=== PATIENT | male | born 1945 | race Caucasian/White ===

== ENCOUNTER → 2020-04-29 09:49 | Outpatient (BNVA) | payer OTHER, SELFPAY | PROVIDERS: PCP Internal Medicine; Visit Provider Urology | DX: Z87.442 Personal history of urinary calculi (principal) | CPT/HCPCS: 99214 ==

== ENCOUNTER → 2021-05-04 10:12 | Outpatient (BNVA) | payer OTHER, SELFPAY | PROVIDERS: PCP Internal Medicine; Visit Provider Urology | DX: N20.0 Calculus of kidney (principal) ==

== ENCOUNTER 2023-04-12 11:53 | Outpatient (REF) | payer OTHER, MEDICARE, SELFPAY | END 2023-04-12 11:54 | disposition home or self-care (01) | LOC: HO.MDS 11:53 | PROVIDERS: Visit Provider Psychiatry & Neurology Neurology | DX: H46.9 Unspecified optic neuritis (principal) | CPT/HCPCS: 96365; J2930 ==

== ENCOUNTER 2023-04-13 12:04 | Outpatient (REF) | payer OTHER, MEDICARE, SELFPAY | END 2023-04-13 12:05 | disposition home or self-care (01) | LOC: HO.MDS 12:04 | PROVIDERS: Visit Provider Psychiatry & Neurology Neurology | DX: H46.9 Unspecified optic neuritis (principal) | CPT/HCPCS: 96365; J2930 ==

== ENCOUNTER 2023-04-14 12:04 | Outpatient (REF) | payer OTHER, MEDICARE, SELFPAY | END 2023-04-14 12:05 | disposition home or self-care (01) | LOC: HO.MDS 12:04 | PROVIDERS: Visit Provider Psychiatry & Neurology Neurology | DX: H46.9 Unspecified optic neuritis (principal) | CPT/HCPCS: 96365; J2930 ==

== ENCOUNTER 2023-11-08 09:02 | Outpatient (AMB) | payer OTHER, MEDICARE, SELFPAY ==
--- NOTE | 2023-11-08 09:03 | MHC.OFFVIS ---
Intake Visit Reasons: 1Y US(set) Intake Note: Patient is Present for Telephone Follow Up Urology Med:Vitamin B6 Antibiotic Allergy:None Blood Thinner: Warfarin Allergies No Known Allergies Allergy (Verified 11/08/23 09:10) Medication List - Last Reconciled 11/08/23 by Adam Santos MD albuterol sulfate 90 mcg/actuation inhalation amlodipine 5 mg PO DAILY amoxicillin-pot clavulanate 875-125 mg 1 tab PO BID azelastine intranasal budesonide mg inhalation BID enoxaparin mg subcut fexofenadine 180 mg PO DAILY fluticasone propion-salmeterol 250-50 mcg/dose inhalation fluticasone propion-salmeterol 500-50 mcg/dose inhalation fluticasone propionate 50 mcg/actuation intranasal folic acid 1 mg PO DAILY ipratropium bromide intranasal ipratropium-albuterol 20-100 mcg/actuation inhalation levocetirizine 5 mg PO DAILY metoprolol succinate ER 50 mg PO DAILY montelukast 10 mg PO DAILY peg 3350-electrolytes 236-22.74-6.74 -5.86 gram 4,000 mL PO DIRECTED prednisone 5 mg PO DAILY pyridoxine (vitamin B6) 50 mg PO DAILY 90 days simvastatin 10 mg PO BEDTIME warfarin mg PO HPI Comments Details: Hakan Bowles is a very pleasant male. He is a patient of Dr. Nava. He is seen for the following urologic conditions - nephrolithiasis Telephone evaluation 15 minutes consultation Doxedelight herbie Video attempted Discussed results from ultrasound Small stones bilateral Vitamin B6 prescribed 12 month follow-up Nephrolithiasis ? They are here for further evaluation of urethrolitiasis ? - no symptoms. ? They present for evaluation of? back pain? none ? flank pain? none ? abdominal pain? none ? Urolithiasis was diagnosed [address] Harmon. ? The patient previously had kidney stones whose composition w calcium oxalate - background of ulcerative colitis which may change oxalate processing. ? Laboratory investigations include no recent labs. ? 24 Hour urine evaluation none on file. ? Prior treatment(s) include Left , PCNL 2cm stone 08/2007, ESWL 05/2009 ? , with dietary advice to increase fluids, decrease salt and watch protein intake. ? Prior imaging includes Feb 2016 a KUB x-ray , showing radiodense stone(s), on the left, 1-2 mm x 2 ? 04/02 , a KUB x-ray, showing no evidence of stones ? 04/03 , a KUB x-ray, bilateral stones 4 mm ? 04/04 renal ultrasound 7 mm lower pole left, KUB 6 mm lower pole left - 04/05? renal ultrasound? no stones noted.? Area for caliectasis upper pole right kidney - 04/06 renal ultrasound question on of 3 mm stone on left side - 05/07 renal ultrasound 7 mm right stone, 4 mm left stone ? UA today shows 5.5-6.0, low pH suggestive of higher protein load, high specific gravity suggestive of relative dehydration. ? Current therapeutic plan will be to continue with imaging surveillance PFSH Medical History Colitis History of kidney stones Phlebitis Surgical History History of surgery Review of Systems Const All systems reviewed & are unremarkable except as noted in HPI and below Reports no additional complaints Resp Reports no additional complaints GI Reports no additional complaints Reports as per HPI Musc Reports no additional complaints Physical Exam Telemedicine evaluation Appropriate responses Regular breathing rate and rhythm HEENT Head: Yes normal to inspection Ears: hearing grossly normal bilaterally Eyes General: appearance normal, both eyes and all related structures Neck Neck: Yes normal visual inspection Chest Chest palpation & inspection: normal inspection of the chest Resp Effort & Inspection: normal respiratory effort and able to speak in complete sentences Telehealth Telehealth Location of provider rendering services: practice address Location of patient: address on file Patient Identification confirmed using: Name, : Yes Telehealth method: video Patient verbally consented to treatment: Yes Patient verbally consented to billing insurance company: Yes Patient informed of any privacy concerns related to visit: Yes Minutes spent on Phone/Video with Pt.: 15 Assessment & Plan Assessment & Plan (1) Nephrolithiasis: Code(s): N20.0 - Calculus of kidney Category: Medical Plan Continue vitamin B6 50 mg Encourage fluid intake Twelve month follow-up ultrasound Orders: Orders US renal BI 12 Months N20.0 - Calculus of kidney Medications: Changed From pyridoxine (vitamin B6) 100 mg PO DAILY 90 days 90 tabs 3RF N20.0 - Calculus of kidney To pyridoxine (vitamin B6) 50 mg PO DAILY 90 days 90 tabs 3RF N20.0 - Calculus of kidney Patient Instructions: Imaging studies, laboratory and physical exam results were discussed and reviewed in detail. No major barriers to patient understanding were identified. An opportunity to ask questions regarding the treatment plan was provided. All questions were answered. The patient expressed understanding and agreement with the above treatment plan. The patient is aware they should contact our office by phone for worsening of their current condition or the appearance of new urologic symptoms. Compliance is encouraged with any medications and followup testing that is ordered. It is a privilege to participate in the urologic care of your patient. If you have any questions or concerns regarding treatment for the above conditions, or other urologic issues, please do not hesitate to contact me. The office telephone contact is [phone]. This note is constructed using voice recognition software. While every effort has been made to ensure accuracy land surveyor manager errors may have been included. Yours sincerely, Dr Adam Santos MD, [facility] - Urology Providers of Expert, Compassionate Care for the Genitourinary System Coding Level of Care Code Tele Est Pt Level 4 (95228) Diagnoses Nephrolithiasis N20.0
== END 2023-11-08 09:48 | disposition home or self-care (01) ==
LOC: HO.HUSH 09:02
PROVIDERS: PCP Internal Medicine; Visit Provider Urology
DX: N20.0 Calculus of kidney (principal)
CPT/HCPCS: 99214

== ENCOUNTER → 2023-11-08 09:02 | Outpatient (BNVA) | payer OTHER, MEDICARE, SELFPAY | PROVIDERS: PCP Internal Medicine; Visit Provider Urology ==

== ENCOUNTER 2024-12-06 10:50 | Outpatient (AMB) | payer OTHER, MEDICARE, SELFPAY ==
--- OUTSIDE RECORDS SUMMARY | 2024-12-06 10:56 | XMS_ITS | Clinical Summary ---
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 90 each 08/19/2024 Active amLODIPine (NORVASC) 10 mg tablet Take 1 tablet (10 mg total) by mouth 1 (one) time each day. 90 tablet 1 09/19/2024 Active simvastatin (ZOCOR) 20 mg tablet Take 1 tablet (20 mg total) by mouth 1 (one) time each day. 90 tablet 1 09/19/2024 Active metoprolol succinate (TOPROL-XL) 50 mg 24 hr tablet Take 2 tablets (100 mg total) by mouth 1 (one) time each day. 180 tablet 1 09/19/2024 Active folic acid (FOLVITE) 1 mg tablet TAKE 1 TABLET BY MOUTH DAILY (IC FOLVITE) 90 tablet 10/03/2024 Active hydroCHLOROthia zide 12.5 mg tablet Take 1 tablet (12.5 mg total) by mouth 1 (one) time each day. 90 each 10/24/2024 Active warfarin (COUMADIN) 5 mg tablet TAKE 1 TO 2 TABLETS (5 TO 10 MG) BY MOUTH ONCE A DAY DIRECTED BY COUMADIN CLINIC. DO NOT CHANGE DIETARY HABITS. 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 Lung nodule 10/20/2022 Asthma 02/10/2020 Chronic rhinitis 07/31/2019 Hyposmia 07/31/2019 Essential hypertension 02/27/2019 May-Thurner syndrome 09/26/2016 DVT (deep venous thrombosis) ([facility] V24, [facility]/ CC V28) 04/19/2016 Overview (09/19/2024): 2016, chronic anticoagulation Mixed hyperlipidemia 11/01/2010 Lumbago 08/03/2007 Urolithiasis 04/12/2007 Overview (06/28/2024): [place] Ulcerative colitis ([facility] V24, [facility]/HCC V28) Overview (06/28/2024): [place] [address] dr dougherty Venous (peripheral) insufficiency 09/15/2005 Encounters Date Type Department Care Team Description 11/25/2024 11:00 AM EDT Anticoagulation - Warfarin Visit [facility] Clinic [address] [phone] Deep vein thrombosis (DVT) of distal vein of left lower extremity, unspecified chronicity ([facility]/HCC V24, CMS/HCC V28) (Primary Dx); Longstanding persistent atrial fibrillation ([facility]/HCC V24, [facility]/HCC V28) 11/11/2024 11:10 AM EDT Anticoagulation - Warfarin Visit Coumadin [address] [phone] Deep vein thrombosis (DVT) of distal vein of left lower extremity, unspecified chronicity (CMS/HCC V24, CMS/HCC V28) (Primary Dx); Longstanding persistent atrial fibrillation (CMS/HCC V24, CMS/HCC V28) 11/04/2024 11:10 AM EDT Anticoagulation - Warfarin Visit Coumadin [address] [phone] Deep vein thrombosis (DVT) of distal vein of left lower extremity, unspecified chronicity (CMS/HCC V24, CMS/HCC V28) (Primary Dx); Longstanding persistent atrial fibrillation (CMS/HCC V24, CMS/HCC V28) 10/30/2024 11:20 AM EDT Anticoagulation - Warfarin Visit Coumadin [address] [phone] Deep vein thrombosis (DVT) of distal vein of left lower extremity, unspecified chronicity (CMS/HCC V24, CMS/HCC V28) (Primary Dx); Longstanding persistent atrial fibrillation (CMS/HCC V24, CMS/HCC V28) 10/28/2024 11:00 AM EDT Anticoagulation - Warfarin Visit Coumadin [address] [phone] Deep vein thrombosis (DVT) of distal vein of left lower extremity, unspecified chronicity (CMS/HCC V24, CMS/HCC V28) (Primary Dx); Longstanding persistent atrial fibrillation (CMS/HCC V24, CMS/HCC V28) 10/24/2024 9:45 AM EDT Office Visit Adult Medicine [address] [phone] Maribell Rosen MD Rib pain (Primary Dx); Essential hypertension; Longstanding persistent atrial fibrillation (CMS/HCC V24, CMS/HCC V28); Mixed hyperlipidemia; Hyposmia 10/14/2024 11:10 AM EDT Anticoagulation - Warfarin Visit Coumadin [address] [phone] Deep vein thrombosis (DVT) of distal vein of left lower extremity, unspecified chronicity (CMS/HCC V24, CMS/HCC V28) (Primary Dx); Longstanding persistent atrial fibrillation (CMS/HCC V24, CMS/HCC V28) 10/14/2024 Telephone Adult Medicine [address] [phone] Olga Longoria RN 10/11/2024 Telephone Adult Medicine [facility] - [address] [phone] Brie Willard MA Medication Problem 10/07/2024 4:30 PM EDT Anticoagulation - Warfarin Visit Coumadin [address] [phone] Deep vein thrombosis (DVT) of distal vein of left lower extremity, unspecified chronicity (CMS/HCC V24, CMS/HCC V28) (Primary Dx); Longstanding persistent atrial fibrillation (CMS/HCC V24, CMS/HCC V28) 09/30/2024 9:46 AM EDT - 09/30/2024 11:59 PM EDT Hospital Encounter Radiology Department - [address] [phone] Calculus of kidney Discharge Disposition: Home or Self Care 09/24/2024 Telephone Adult Medicine [address] [phone] Maribell Rosen MD Release of Information (Pre Op inform) 09/19/2024 10:00 AM EST Consult Adult Medicine [address] [phone] Maribell Rosen MD Preop cardiovascular exam (Primary Dx); Mild intermittent asthma without complication; Longstanding persistent atrial fibrillation (CMS/HCC V24, CMS/HCC V28); Essential hypertension; Mixed hyperlipidemia; Calculus of lower urinary tract; Optic disc edema; Hyposmia 09/16/2024 11:00 AM EST Anticoagulation - Warfarin Visit Coumadin [address] [phone] Deep vein thrombosis (DVT) of distal vein of left lower extremity, unspecified chronicity (CMS/HCC V24, CMS/HCC V28) (Primary Dx); Longstanding persistent atrial fibrillation (CMS/HCC V24, CMS/HCC V28) 09/09/2024 11:00 AM EST Anticoagulation - Warfarin Visit Coumadin [address] [phone] Deep vein thrombosis (DVT) of proximal vein of left lower extremity, unspecified chronicity ([facility] V24, [facility] V28) (Primary Dx); 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; Atrial fibrillation, unspecified type ([facility] V24, [facility] V28) 09/09/2024 Telephone Adult [address] [phone] Maribell Rosen MD Hypertension; Walk-in from Last 3 Months Immunizations Name Administration Dates Next Due Influenza Quadravalent, 0.5m l (Fluzone High-dose) 65yo and older 04/18/2023,04/27/2022,04/22/2021 Influenza trivalent, 0.5mL ( Fluzone High-dose) 65yo and older 03/25/2024,04/20/2020,04/16/2019,04/23,04/28/2017 Influenza trivalent, with pr eservative (Fluzone; Afluria) 6mo and older 05/16/2019,04/12/2016,06/23/2015,04/04,03/26/2012,04/20/2011,05/05/2010 ,04/04/2009,06/05/2008,06/16/2007 Moderna SARS-CoV-2 COVID-19, mRNA, LNP-S, preservative free 10/09/2020,09/18/2020 [place] Covid-19 Bivalent, Or iginal + Ba.1 (Non-US Trademark [employer] Bivalent) 04/27/2022 Pneumococcal conjugate 13 va lent (Prevnar 13, PCV13) 2mo and older 03/02/2015 Pneumococcal polysaccharide 23 valent (Pneumovax 23) 2yo and older 06/28/2017,09/17/2012 Pneumococcal, Unspecified 10/14/2008 Respiratory syncytial virus (RSV), unspecified 09/18/2023 Td Tetanus diptheria (Tdvax) 7yo and older 01/21/2013 Td, Unspecified 02/14/2006 Tdap Tetanus diptheria acell ular pertussis (Boostrix; Adacel) 7yo and older 09/12/2019,04/02/2007 Zoster Live 04/04/2013 Zoster recombinant (Shingrix ) 19yo and older 03/11/2019,09/10/2018 Surgical History Surgery Date Site/Laterality Comments OTHER SURGICAL HISTORY 2007 Left left knee arthroscopy 2006 - meniscal tear COLONOSCOPY 2014 dr dougherty - 1 yr f/u Medical History Medical History Date Comments Ulcerative colitis, unspecified 09/15/2005 Calculus of kidney 04/12/2007 2 small in le ft kidney, one in right kidney Lumbago 08/03/2007 Mixed hyperlipidemia 11/01/2010 Atrial fibrillation ([facility] V24, [facility] V28) 04/28/2023 DVT (deep venous thrombosis) ([facility] V24, [facility] V28) 04/19/2016 Hyposmia 07/31/2019 Lung nodule 10/20/2022 May-Thurner syndrome 09/26/2016 Venous (peripheral) insufficiency 09/15/2005 Family History Medical History Relation Name Comments Coronary artery disease Father Other: lived to 84 Mother Pulmonary embolism Sister uterine c ancer Relation Name Status Comments Father (Age 60) Maternal Grandfather Maternal Grandmother Mother (Age 82) Paternal Grandfather Paternal Grandmother Sister (Age 43) Social History Tobacco Use Types Packs/Day Years Used Date Smoking Tobacco: Never Smokeless Tobacco: Never Tobacco Cessation:Counseling Given: Not Answered Alcohol Use Standard Drinks/Week Comments Yes 4 (1 standard drink = 0.6 oz pur e alcohol) Sex and Gender Information Value Date Recorded Sex Assigned at Not on file Legal Sex Male 8:17 PM EST Gender Identity Not on file Sexual Orientation Not on file Obstetrics History Last Filed Vital Signs Vital Sign Reading Time Taken Comments Blood Pressure 128/62 10/24/2024 9:50 AM EDT Pulse 63 10/24/2024 9:50 AM EDT Temperature 36 ??C (96.8 ??F) 10/24/2024 9:50 AM EDT Respiratory Rate 14 10/24/2024 9:50 AM EDT Oxygen Saturation 94% 10/24/2024 9:50 AM EDT Inhaled Oxygen Concentration - - Weight 71.9 kg (158 lb 9.6 oz) 10/24/2024 9:50 A M EDT Height 172.7 cm (5' 8 ) 10/24/2024 9:50 AM EDT Body Mass Index 24.12 10/24/2024 9:50 AM EDT Plan of Treatment Upcoming Encounters Date Type Department Care Team (Late st Contact Info) Description 12/16/2024 11:00 AM EDT Anticoagulation - Warfarin Visit Coumadin Clinic - [place] [address] [place] [address] 04/21/2025 10:15 AM EDT Office Visit Adult Medicine [facility] [address] [place], [place] [phone] Gladis Foreman PA [address], [place] Health Maintenance Due Date Last Done Comments RSV Immunization Adult Patients (1 - 1-dose 75+ series) 2022 09/18/2023 Depression Screening 06/18/2022 Falls Risk Assessment 06/18/2022 Medicare Annual Wellness Visit 06/18/2022 Social Influencers of Health Screening 06/18/2022 Colorectal Cancer Screening: Colonoscopy 04/28/2023 04/28/2021 COVID-19 Vaccine ( season) 2024 04/09/2024, 05/01/2023, 11/16/2021, Additional history exists Hypertension/CHF/CAD Annual BMP Blood Test 07/12/2025 07/12/2024, 02/21/2024, 02/21/2024 Cholesterol Screening (Lipid Panel) 07/12/2029 07/12/2024, 12/06/2021 DTaP,Tdap,and Td Vaccines (5 - Td or Tdap) 09/12/2029 09/12/2019, 01/21/2013, 04/02/2007, Additional history exists Pneumococcal Vaccine: 50+ Years Completed 06/28/2017, 03/02/2015, 09/17/2012, Additional history exists Zoster Vaccines Completed 03/11/2019, 08/18, 04/04/2013 Hepatitis C Screening Completed 12/22/2020 RSV Immunization Patients Under 20 months Aged Out 09/18/2023 No longer eligible based on patient's age to complete this topic Influenza Vaccine Completed 03/25/2024, , 04/27/2022, Additional history exists HIB Vaccines Aged Out No longer eligi ble based on patient's age to complete this topic HPV Vaccines Aged Out No longer eligi ble based on patient's age to complete this topic Hepatitis A Vaccines Aged Out No long er eligible based on patient's age to complete this topic Hepatitis B Vaccines Aged Out No long er eligible based on patient's age to complete this topic IPV Vaccines Aged Out No longer eligi ble based on patient's age to complete this topic MMR Vaccines Aged Out No longer eligi ble based on patient's age to complete this topic Meningococcal ACWY Vaccine Aged Out N o longer eligible based on patient's age to complete this topic Meningococcal B Vaccine Aged Out No l onger eligible based on patient's age to complete this topic Varicella Vaccines Aged Out No longer eligible based on patient's age to complete this topic Procedures Procedure Name Priority Date/Time Associated Diagnosis Comments POC PROTIME INR BLOOD Routine 11/25/2024 Deep vein thrombosis (DVT) of distal vein of left lower extremity, unspecified chronicity (CMS/HCC V24, CMS/HCC V28) Longstanding persistent atrial fibrillation (CMS/HCC V24, CMS/HCC V28) POC PROTIME INR BLOOD Routine 11/11/2024 Deep vein thrombosis (DVT) of distal vein of left lower extremity, unspecified chronicity (CMS/HCC V24, CMS/HCC V28) Longstanding persistent atrial fibrillation (CMS/HCC V24, CMS/HCC V28) ECG 12-LEAD TRACING ONLY Routine 11/07/2024 12:22 PM EDT Preop cardiovascular exam Longstanding persistent atrial fibrillation (CMS/HCC V24, CMS/HCC V28) Essential hypertension POC PROTIME INR BLOOD Routine 11/04/2024 Deep vein thrombosis (DVT) of distal vein of left lower extremity, unspecified chronicity (CMS/HCC V24, CMS/HCC V28) Longstanding persistent atrial fibrillation (CMS/HCC V24, CMS/HCC V28) POC PROTIME INR BLOOD Routine 10/30/2024 Deep vein thrombosis (DVT) of distal vein of left lower extremity, unspecified chronicity (CMS/HCC V24, CMS/HCC V28) Longstanding persistent atrial fibrillation (CMS/HCC V24, CMS/HCC V28) POC PROTIME INR BLOOD Routine 10/28/2024 Deep vein thrombosis (DVT) of distal vein of left lower extremity, unspecified chronicity (CMS/HCC V24, CMS/HCC V28) Longstanding persistent atrial fibrillation (CMS/HCC V24, CMS/HCC V28) POC PROTIME INR BLOOD Routine 10/14/2024 Deep vein thrombosis (DVT) of distal vein of left lower extremity, unspecified chronicity (CMS/HCC V24, CMS/HCC V28) Longstanding persistent atrial fibrillation (CMS/HCC V24, CMS/HCC V28) POC PROTIME INR BLOOD Routine 10/07/2024 Deep vein thrombosis (DVT) of distal vein of left lower extremity, unspecified chronicity (CMS/HCC V24, CMS/HCC V28) Longstanding persistent atrial fibrillation (CMS/HCC V24, CMS/HCC V28) US RETROPERITONEAL COMPLETE Routine 09/30/2024 10:20 AM EDT Calculus of kidney POC PROTIME INR BLOOD Routine 09/16/2024 Deep vein thrombosis (DVT) of distal vein of left lower extremity, unspecified chronicity (CMS/HCC V24, CMS/HCC V28) Longstanding persistent atrial fibrillation (CMS/HCC V24, CMS/HCC V28) POC PROTIME INR BLOOD Routine 09/09/2024 Deep vein thrombosis (DVT) of proximal vein of left lower extremity, unspecified chronicity (CMS/HCC V24, CMS/HCC V28) prison (current) use of anticoagulants Atrial fibrillation, unspecified type (CMS/HCC V24, CMS/HCC V28) BASIC METABOLIC PANEL Routine 07/12/2024 2:13 PM EST Essential hypertension LIPID PANEL WITH REFLEX TO DIRECT LDL Routine 07/12/2024 2:13 PM EST Mixed hyperlipidemia HM COLONOSCOPY Routine 04/28/2021 HEPATITIS C SCREENING Routine 12/22/2020 from Last 3 Months or Most Recently Relevant to Health Maintenance Results * POC Protime INR Blood (11/25/2024) Only the most recent of9 resultswithin the time period is included. Lot Number INR POC 3.0 Prothrombin Time POC Exp Date Blood 11/25/2024 us Maribell Rosen MD POINT OF CARE TEST ENTER/EDIT OR DERABLES Final Result * (ABNORMAL) ECG 12 lead Tracing Only (11/07/2024 12:22 PM EDT) us Maribell Rosen MD ECG ORDERABLES Final Result * US Retroperitoneal Complete (09/30/2024 10:20 AM EDT) Anatomical Region Laterality Modality Body Ultrasound 09/30/2024 12:1 8 PM EDT Impressions 09/30/2024 12:25 PM EDT Left lower pole 0.3 cm nonobstructing calculus -------- FINAL REPORT -------- Dictated By: Karen Larry Dictated Date: 09/30/2024 12:18 ET Assigned Physician: Karen Larry Reviewed and Electronically Signed By: Karen Larry Signed Date: 09/30/2024 12:25 ET Workstation ID: [id number] Transcribed By: Self Edit Transcribed Date: 09/30/2024 12:18 ET Narrative 09/30/2024 12:25 PM EDT EXAM: RENAL ULTRASOUND HISTORY: kidney stone COMPARISON: Ultrasound renal from 10/18/2023 TECHNIQUE: Cobian scale and color Doppler images were obtained of the kidneys and bladder. FINDINGS: ?? Right kidney: ??measures 10.7 cm in length and is sonographically unremarkable. Left kidney: ??measures 9.5 cm in length and is normal in echogenicity. ??Within the lower pole is a 0.3 x 0.2 cm nonobstructing calculus. No hydronephrosis bilaterally Bladder: Bilateral ureteral jets noted. ??The bladder measures 2.5 x 2.9 x 6.2 cm. ??The prevoid volume is 33 mL. Prostate: Measures 3.7 x 3.4 x 3.8 cm with a volume of 25 mL. Procedure Note Karen Larry MD - 09/30/2024 EXAM: RENAL ULTRASOUND HISTORY: kidney stone COMPARISON: Ultrasound renal from 10/18/2023 TECHNIQUE: Cobian scale and color Doppler images were obtained of thekidneys and bladder. FINDINGS: Right kidney: measures 10.7 cm in length and is sonographicallyunremarkable. Left kidney: measures 9.5 cm in length and is normal in echogenicity.Within the lower pole is a 0.3 x 0.2 cm nonobstructing calculus. No hydronephrosis bilaterally Bladder: Bilateral ureteral jets noted. The bladder measures 2.5 x 2.9 x6.2 cm. The prevoid volume is 33 mL. Prostate: Measures 3.7 x 3.4 x 3.8 cm with a volume of 25 mL. IMPRESSION: Left lower pole 0.3 cm nonobstructing calculus -------- FINAL REPORT -------- Dictated By: Karen Larry Dictated Date: 09/30/2024 12:18 ET Assigned Physician: Karen Larry Reviewed and Electronically Signed By: Karen Larry Signed Date: 09/30/2024 12:25 ET Workstation ID: [id number] Transcribed By: Self Edit Transcribed Date: 09/30/2024 12:18 ET us Adam Santos MD IMG US PROCEDURES Final Resul t * Lipid panel with reflex to direct LDL (07/12/2024 2:13 PM EST) Cholesterol 126 0 - 200 mg/dL LAB CHEMISTRY METHOD 07/12/2024 5:25 PM EST [facility] Triglycerides 44 0 - 150 mg/dL LAB CHEMISTRY METHOD 07/12/2024 5:25 PM EST [facility] HDL 67 >=40 mg/dL LAB CHEMISTRY METHOD 07/12/2024 5:25 PM [facility] LDL Calculated 50 0 - 100 mg/dL LAB CHEMISTRY METHOD 07/12/2024 5:25 PM [facility] VLDL Cholesterol Nikunj 8.8 mg/dL LAB CHEMISTRY METHOD 07/12/2024 5:25 PM [facility] Non HDL Chol. (LDL+VLDL) 59 <145 mg/dL LAB CHEMISTRY METHOD 07/12/2024 5:25 PM [facility] Chol/HDL Ratio 1.9 0.0 - 4.4 LAB CHEMISTRY METHOD 07/12/2024 5:25 PM [facility] Blood Venous blood specimen / Unknown Venipuncture / Unknown 07/12/2024 2:13 PM EST 07/12/2024 2:13 PM EST us Maribell Rosen MD LAB BLOOD ORDERABLES Final Resul t [facility] [address] [place] [address], [place] [phone] * (ABNORMAL) Basic metabolic panel (07/12/2024 2:13 PM EST) Sodium 140 133 - 145 mmol/L LAB CHEMISTRY METHOD 07/12/2024 5:25 PM [facility] Potassium 3.8 3.5 - 5.5 mmol/L LAB CHEMISTRY METHOD 07/12/2024 5:25 PM [facility] Chloride 108 96 - 110 mmol/L LAB CHEMISTRY METHOD 07/12/2024 5:25 PM [facility] CO2 29 21 - 32 mmol/L LAB CHEMISTRY METHOD 07/12/2024 5:25 PM [facility] Anion Gap 3 3 - 11 LAB CHEMISTRY METHOD 07/12/2024 5:25 PM [facility] Glucose 102(H) 70 - 100 mg/dL LAB CHEMISTRY METHOD 07/12/2024 5:25 PM EST [facility] BUN 17 5 - 25 mg/dL LAB CHEMISTRY METHOD 07/12/2024 5:25 PM [facility] Creatinine 0.93 0.70 - 1.30 mg/dL LAB CHEMISTRY METHOD 07/12/2024 5:25 PM [facility] eGFR 85 >=60 mL/min/1. 73m2 LAB CHEMISTRY METHOD 07/12/2024 5:25 PM [facility] Comment:Calculation based on the??Chronic Kidney Disease Epidemiology Collaboration (CKD-EPI) equation refit??without adjustment for race. BUN/Creatinine Ratio 18.3 LAB CHEMISTRY METHOD 07/12/2024 5:25 PM [facility] Calcium 9.0 8.5 - 10.5 mg/dL LAB CHEMISTRY METHOD 07/12/2024 5:25 PM [facility] Blood Venous blood specimen / Unknown Venipuncture / Unknown 07/12/2024 2:13 PM EST 07/12/2024 2:13 PM EST us Maribell Rosen MD LAB BLOOD ORDERABLES Final Resul t [facility] [address] [place] [address], * Colonoscopy (04/28/2021) Colonoscopy no interpretation , abstracted Anatomical Region Laterality Modality Other Shireen Provider HEALTH MAINTENANCE Final Result * Hepatitis C Screening (12/22/2020) Pathologist [facility] Hepatitis C Screening abstracted Shireen Provider HEALTH MAINTENANCE Final Result from Last 3 Months or Most Recently Relevant to Health Maintenance Insurance MEDICARE [facility] Care Teams [employer] Supervisor Relationship Specialty Start Date End Date Maribell Rosen MD [address] [place] [address] PCP - General Internal Medicine 11/19/20
--- NOTE | 2024-12-06 11:05 | A.OFFVIS_ITS ---
Intake Visit Reasons: 1y/US Intake Note: Brodie 79 yr old male presents today for his 1 year follow up ultrasound. Allergies No Known Allergies Allergy (Verified 12/06/24 11:05) HPI Comments Details: Hakan Bowles is a very pleasant male. He is a patient of Dr. Nava. He is seen for the following urologic conditions - nephrolithiasis Discussed results from ultrasound It seems combination vitamin B6 has significantly reduced to stone formation 12 month follow-up Nephrolithiasis ? Urolithiasis was diagnosed [address] Harmon. ? The patient previously had kidney stones whose composition w calcium oxalate - background of ulcerative colitis which may change oxalate processing. ? Laboratory investigations include no recent labs. ? 24 Hour urine evaluation none on file. ? Prior treatment(s) include Left , PCNL 2cm stone 08/2007, ESWL 05/2009 ? , with dietary advice to increase fluids, decrease salt and watch protein intake. ? Prior imaging includes Feb 2016 a KUB x-ray , showing radiodense stone(s), on the left, 1-2 mm x 2 ? 04/02 , a KUB x-ray, showing no evidence of stones ? 04/03 , a KUB x-ray, bilateral stones 4 mm ? 04/04 renal ultrasound 7 mm lower pole left, KUB 6 mm lower pole left - 04/05? renal ultrasound? no stones noted.? Area for caliectasis upper pole right kidney - 04/06 renal ultrasound question on of 3 mm stone on left side - 05/07 renal ultrasound 7 mm right stone, 4 mm left stone - 10/08 renal ultrasound shows left 3 mm, no stones right side ? UA today shows 5.5-6.0, low pH suggestive of higher protein load, high specific gravity suggestive of relative dehydration. ? Current therapeutic plan will be to continue with imaging surveillance [facility] Medical History Colitis History of kidney stones Phlebitis Surgical History History of surgery Review of Systems Const Denies chills and Denies fever(s) Card Reports no additional complaints and Denies syncope Resp Denies cough GI Denies abdominal pain and Denies heartburn Reports as per HPI and Denies change in libido Neuro Denies syncope Psych Denies change in libido Endo Denies change in libido Physical Exam Const General: cooperative, healthy appearing, comfortable and no acute distress Orientation/consciousness: patient oriented x3 HEENT Face and sinus: Yes normal facial exam Mouth: moist mucous membranes Neck Neck: Yes normal visual inspection, Yes full ROM and Yes trachea midline Chest Chest palpation & inspection: normal inspection of the chest Resp Effort & Inspection: normal respiratory effort, able to speak in complete se ntences and no respiratory distress GI Inspection: Yes normal to inspection Back/Spine/Pelvis Cervical Spine: normal cervical lordosis Thoracic/Lumbar Spine: thoracic and lumbar spine normal to inspection Skin General skin exam: no rashes or lesions noted Neuro General: patient oriented x3, gait normal, tone normal and moves all extremities Extrem General: Yes normal to inspection and Yes capillary refill normal Results AMB Urinalysis, Automated UA Leukoctes 0 Scooby/uL Last Edit by CARLOS A Healy on 12/06/24 12:16 UA Nitrite Negative Last Edit by CARLOS A Healy on 12/06/24 12:16 UA Urobilinogen 0.2 mg/dL Last Edit by CARLOS A Healy on 12/06/24 12:1 6 UA Protein 15 mg/dL Last Edit by CARLOS A Healy on 12/06/24 12:16 UA pH 5.5 Last Edit by CARLOS A Healy on 12/06/24 12:16 UA Blood 200 Mike/uL Last Edit by CARLOS A Healy on 12/06/24 12:16 UA Specific [place] 1.015 Last Edit by CARLOS A Healy on 12/06/24 12: 16 UA Ketone Negative Last Edit by CARLOS A Healy on 12/06/24 12:16 UA Bilirubin 0 mg/dL Last Edit by CARLOS A Healy on 12/06/24 12:16 UA Glucose 0 mg/dL Last Edit by CARLOS A Healy on 12/06/24 12:16 Results Reviewed Results Reviewed: Laboratory Last Values Urine pH (Auto) 5.5 12/06/24 12:16 Specific [place] (Auto) 1.015 12/06/24 12:16 Urine Protein (Auto) 15 mg/dL 12/06/24 12:16 Glucose (UA)(Auto) 0 mg/dL 12/06/24 12:16 Urine Ketones (Auto) Negative 12/06/24 12:16 Urine Blood (Auto) 200 Mike/uL 12/06/24 12:16 Urine Nitrite (Auto) Negative 12/06/24 12:16 Urine Bilirubin (Auto) 0 mg/dL 12/06/24 12:16 Urine Urobilinogen (Auto) 0.2 mg/dL 12/06/24 12:16 Leukocyte Esterase (Auto) 0 Scooby/uL 12/06/24 12:16 Assessment & Plan Assessment & Plan (1) Nephrolithiasis: Code(s): N20.0 - Calculus of kidney Category: Medical Plan Yearly follow-up Continue B6 daily Orders: Orders AMB Urinalysis Automated 12/06/24 Z13.9 - Encounter for screening, unspecified US renal BI 12 Months N20.0 - Calculus of kidney Urine Cytology 12/06/24 R31.29 - Other microscopic hematuria Patient Instructions: This note is constructed using voice recognition software. While every effort has been made to ensure accuracy edger machine setter errors may have been included. Imaging studies, laboratory and physical exam results were discussed and reviewed in detail. No major barriers to patient understanding were identified. An opportunity to ask questions regarding the treatment plan was provided. All questions were answered. The patient expressed understanding and agreement with the above treatment plan. The patient is aware they should contact our office by phone for worsening of their current condition or the appearance of new urologic symptoms. Compliance is encouraged with any medications and followup testing that is ordered. It is a privilege to participate in the urologic care of your patient. If you have any questions or concerns regarding treatment for the above conditions, or other urologic issues, please do not hesitate to contact me. The office telephone contact is [phone]. Sincerely, Dr Adam Santos MD, [facility] - Urology Compassionate Specialist Care for the Genitourinary System Coding Level of Care Code Est Pt Level 4 (65385) Diagnoses Nephrolithiasis N20.0
== END 2024-12-06 11:25 | disposition home or self-care (01) ==
LOC: HO.HUSH 10:51
PROVIDERS: PCP Internal Medicine; Visit Provider Urology
DX: Z13.9 Encounter for screening, unspecified (principal)
CPT/HCPCS: 99214

== ENCOUNTER 2024-12-06 10:50 | Outpatient (REF) | payer OTHER, MEDICARE, SELFPAY ==
[2024-12-06 16:37] LABS: Urine Cytology See Pathology rpt
== END 2024-12-06 10:51 | disposition home or self-care (01) ==
LOC: HO.LAB 10:50
PROVIDERS: PCP Internal Medicine; Visit Provider Urology
DX: N20.0 Calculus of kidney (principal); R31.29 Other microscopic hematuria
CPT/HCPCS: 81003; 88112; 99212